=== PATIENT | female | born 1970 | race Caucasian/White ===

== ENCOUNTER 2016-08-13 08:06 | Emergency (ER) | payer OTHER | END 2016-08-13 09:32 | disposition home or self-care (01) | LOC: ER 08:06 | DX: J02.9 Acute pharyngitis, unspecified (principal); B37.0 Candidal stomatitis; R50.9 Fever, unspecified; I10 Essential (primary) hypertension; F41.9 Anxiety disorder, unspecified; Z79.899 Other long term (current) drug therapy | CPT/HCPCS: 87400; 99282 ==